=== PATIENT | female | born 1995 | race Caucasian/White ===

== ENCOUNTER 2019-08-15 09:16 | Emergency (ER) | payer OTHER ==
[~2019-08-15] VITALS: Ht 162.6 cm; Wt 81.7 kg
[2019-08-15] MEDS ORDERED: BACTRIM DS TAB1 EACH PO (12:14)
[2019-08-15] MEDS ORDERED: PHENERGAN 25 MG25 M1 PO (12:14)
[2019-08-15] MEDS ORDERED: ULTRAM 50MG TAB50 MG PO (12:14)
[2019-08-15 12:27] VITALS: BP 106/67
== END 2019-08-15 12:56 | disposition home or self-care (01) ==
LOC: ER 09:16
DX: L05.01 Pilonidal cyst with abscess (principal)

== ENCOUNTER 2019-09-30 02:32 | Emergency (ER) | payer OTHER ==
[~2019-09-30] VITALS: Ht 162.6 cm; Wt 81.7 kg
[~2019-09-30 02:32] MED LIST: BACTRIM DS TAB1 EACH PO; PHENERGAN 25 MG25 M1 PO; ULTRAM 50MG TAB50 MG PO
[2019-09-30 03:30] VITALS: BP 116/73
== END 2019-09-30 03:30 | disposition home or self-care (01) ==
LOC: ER 02:32
DX: L05.01 Pilonidal cyst with abscess (principal)

== ENCOUNTER 2019-12-16 17:34 | Emergency (ER) | payer OTHER ==
[~2019-12-16] VITALS: Ht 170.2 cm; Wt 72.6 kg
[2019-12-16] MEDS ORDERED: AMOXICILLIN500 M1 PO (18:00)
[2019-12-16 18:06] VITALS: BP 138/71
== END 2019-12-16 18:06 | disposition home or self-care (01) ==
LOC: ER 17:34
DX: J02.0 Streptococcal pharyngitis (principal)